=== PATIENT | male | born 1985 ===

== ENCOUNTER 2018-07-08 21:22 | Emergency (ER) | payer SELFPAY ==
[2018-07-08] MEDS ORDERED: NS 0.9% 1000 ML* 2,000 ML IV ONE (21:46)
[2018-07-08] MEDS ORDERED: Al Hydrox/Mg Hydrox/Simet LIQ* 30 ML UDC PO ONE (21:46)
[2018-07-08] MEDS ORDERED: Diphenoxylat/Atrop 2.5-0.025M* 1 TAB PO ONE (21:46)
[2018-07-08] MEDS ORDERED: Ondansetron INJ* 2 MG/ML VIAL IV ONE (21:46)
--- NOTE | 2018-07-08 22:08 | ED ---
GI/ HPI - HPI Summary HPI Summary: This patient is a 33 year old M presenting to [facility] with a chief complaint of n/ v since 1700 today. Pt states he felt fine earlier today and has not traveled recently. The onset was sudden with multiple episodes of vomiting. The patient rates the pain 8/10 in severity. Patient reports epigastric pain. Patient denies fever. - History of Current Complaint Chief Complaint: EDChestPainROMI Time Seen by Provider: 07/08/18 21:41 Stated Complaint: VOMITING/DIARRHEA/CHEST PAIN Hx Obtained From: Patient Onset/Duration: Started Hours Ago, Resolved Timing: Constant Severity: Moderate Current Severity: Moderate Pain Intensity: 8 Location of Pain: Epigastric Associated Signs and Symptoms: Positive: Negative - fever - Allergy/Home Medications Allergies/Adverse Reactions: Allergies Allergy/AdvReac Type Severity Reaction Status Date / Time No Known Allergies Allergy Verified 07/08/18 21:34 PMH/Surg Hx/FS Hx/Imm Hx Endocrine/Hematology History: Denies: Hx Thyroid Disease Cardiovascular History: Denies: Hx Cardiac Arrest Neurological History: Denies: Hx CVA Infectious Disease History: No Infectious Disease History: Denies: Traveled Outside the [place] in Last 30 Days - Family History Known Family History: Positive: Diabetes - Social History Alcohol Use: Rare Substance Use Type: Reports: None Smoking Status (MU): Never Smoked Tobacco Review of Systems Negative: Fever Positive: Abdominal Pain, Vomiting, Nausea All Other Systems Reviewed And Are Negative: Yes Physical Exam - Summary Physical Exam Summary: Appearance: Well-appearing, Well-nourished, lying in bed comfortably Skin: Warm, dry, no obvious rash Eyes: sclera anicteric, no conjunctival pallor ENT: mucous membranes moist, pharynx appears normal Neck: Supple, nontender Respiratory: Clear to auscultation, no signs of respiratory distress Cardiovascular: Normal S1, S2. No murmurs. Normal distal pulses in tibial and radial bilaterally. Abdomen: Soft, nontender, normal active bowel sounds present Musculoskeletal: Normal, Strength/ROM Intact Neurological: A&Ox3, awake and alert, mentation is normal, speech is fluent and appropriate Psychiatric: affect is normal, does not appear anxious or depressed Triage Information Reviewed: Yes Vital Signs On Initial Exam: Initial Vitals Temp Pulse Resp BP Pulse Ox 97.9 F 104 20 102/70 100 07/08/18 21:32 07/08/18 21:32 07/08/18 21:32 07/08/18 21:32 07/08/18 21:32 Vital Signs Reviewed: Yes Diagnostics - Vital Signs Vital Signs Temp Pulse Resp BP Pulse Ox 07/08/18 21:32 97.9 F 104 20 102/70 100 - Laboratory Result Diagrams: 07/08/18 22:24 07/08/18 22:24 Lab Statement: Any lab studies that have been ordered have been reviewed, and results considered in the medical decision making process. - EKG 2125 Cardiac Rate: Tachycardia EKG Rhythm: Sinus Tachycardia - sinus tach at 98 BPM, P waves, QRS complex, and T waves are within normal limits, T waves and intervals are normal, no ischemic changes. This is a normal EKG Re-Evaluation - Re-Evaluation First Eval Re-Evaluation Time: 23:27 Change: Improved Comment: Pt has improved with medications. GIGU Course/Dx - Course Assessment/Plan: This patient is a 33 year old M presenting to [facility] with a chief complaint of n/v since 1700 today. Pt states he felt fine earlier today and has not traveled recently. The onset was sudden with multiple episodes of vomiting. The patient rates the pain 8/10 in severity. Patient reports epigastric pain. Patient denies fever. An EKG reveals sinus tach at 98 BPM, P waves, QRS complex, and T waves are within normal limits, T waves and intervals are normal, no ischemic changes. This is a normal EKG. Blood work obtained. In the ED course the patient was given Zofran, lomotil, Maalox, and IV fluids which improved sx. Patient will be discharged with prescription for Zofran and follow up from PCP. The patient is agreeable with this plan - Diagnoses Provider Diagnoses: Gastroenteritis Discharge - Sign-Out/Discharge Documenting (check all that apply): Patient Departure - Discharge Plan Condition: Improved Disposition: HOME Prescriptions: Diphenoxylat/Atrop 2.5-0.025M* [Lomotil TAB*] 1 tab PO QID PRN #15 tab MDD 6 tabs PRN Reason: Diarrhea Ondansetron [Zofran Odt] 8 mg PO Q6HR PRN #12 tab.rapdis PRN Reason: Nausea Patient Education Materials: Gastroenteritis (ED) Print Language: GEORGIAN Forms: *Work Release Referrals: [facility] [Outside] [facility] REFERRAL [Outside] - 2 Days - Billing Disposition and Condition Condition: IMPROVED Disposition: Home - Attestation Statements Document Initiated by Martina: Yes Documenting Scribe: Willie Kimball Provider For Whom Martina is Documenting (Include Credential): Bharath Crawford MD Scribe Attestation: Willie Brooks , deonibed for Bharath Crawford MD on 07/12/18 at 1829. Scribe Documentation Reviewed: Yes Provider Attestation: The documentation as recorded by the Willie vazquez accurately reflects the service I personally performed and the decisions made by me, Bharath Crawford MD
[2018-07-08 22:34] LABS: Hematocrit 52 % (42-52); Hemoglobin 17.3 g/dl (14.0-18.0); Mean Corpuscular HGB Conc 33 g/dl (31-36); Mean Corpuscular Hemoglobin 28 pg (27-31); Mean Corpuscular Volume 83 fL (80-94); Mean Platelet Volume 7.4 um3 (7.4-10.4); Platelet Count 308 10^3/ul (150-450); Red Blood Count 6.28 10^6/ul (4.00-5.40); Red Cell Distribution Width 14 % (10.5-15); White Blood Count 22.3 10^3/ul (3.5-10.8)
[2018-07-08 22:48] LABS: EGFR Non-African American 66.3 (>60)
[2018-07-08 23:00] LABS: ABS Basophils 0.1 10^3/ul (0-0.2); ABS Eosinophils 0.1 10^3/ul (0-0.6); ABS Lymphocytes 0.6 10^3/ul (1.0-4.8); ABS Monocytes 1.3 10^3/ul (0-0.8); ABS Neutrophils 20.2 10^3/ul (1.5-7.7); ABS Nucleated RBC 0 10^3/ul; Eosinophil % 0.6 % (0-6); Lymphocyte % 2.7 % (25-47); Nucleated Red Blood Cells % 0
[2018-07-08 23:51] VITALS: BP 119/70
== END 2018-07-08 23:51 | disposition home or self-care (01) ==
LOC: EDBD → ED 21:22
DX: K52.9 Noninfective gastroenteritis and colitis, unspecified (principal); R11.2 Nausea with vomiting, unspecified; R10.9 Unspecified abdominal pain
CPT/HCPCS: 36415; 80053; 83690; 85025; 93005; 96374; 99283; A9270-GY; J2405